=== PATIENT | female | born 1950 | race Caucasian/White ===

== ENCOUNTER 2017-04-08 12:48 | Outpatient (CLI) | payer MEDICARE, BC ==
--- NOTE | 2017-04-09 10:03 | Mammography Report ---
DIGITAL UNILATERAL LEFT SCREENING MAMMOGRAM: 04/08/2017 COMPARISON STUDY: Mammogram 12/25/2015. INDICATION: Screening mammogram. TECHNIQUE: Routine CC and MLO projections were obtained of the left breast. FINDINGS: Parenchymal tissue within left breast is extremely dense, which lowers the sensitivity of mammography; however, there are no dominant masses, suspicious microcalcifications, or secondary sign s of malignancy. In comparison to the previous studies, there are no significant changes. IMPRESSION: No mammographic evidence of malignancy. PLAN: Screening mammography is recommended annually. BIRADS category 1 - negative. STANDARD QUALIFYING STATEMENTS 1. This examination was reviewed with the aid of Computed-Aided Detection (CAD). 2. A negative or benign imaging report should not delay biopsy if clinically suspicious findings are present. Consider surgical consultation if warranted. More than 5% of cancers are not identified by i maging. 3. Dense breasts may obscure an underlying neoplasm. JOB #: [id number] EXT JOB #:[id number]
== END 2017-04-08 12:49 | disposition home or self-care (01) ==
LOC: DI 12:48
PROVIDERS: ATTEND Physician Assistant Medical
DX: Z12.31 Encounter for screening mammogram for malignant neoplasm of breast (principal)
CPT/HCPCS: 77067

== ENCOUNTER 2018-06-30 08:13 | Outpatient (CLI) | payer MEDICARE, OTHER ==
--- NOTE | 2018-06-30 11:09 | DEXA Report ---
Reason: OSTEOPENIA,POSTMENOPAUSAL Procedure Date: 06/30/2018 Accession Number: [id number] / [id number] Procedure: DEX - Dexa Spine and/or Hip CPT Code: FULL RESULT: EXAM: Dexa Spine and/or Hip DATE: 06/30/2018 9:08 AM CLINICAL HISTORY: OSTEOPENIA,POSTMENOPAUSAL TECHNIQUE: Dual energy x-ray absorptiometry (DXA) was performed on a [employer] System. Regions measured are the AP Spine, femoral neck, and if needed forearm. COMPARISON: 01/10/2016 In accordance with the International Society for Clinical Densitometry (ISCD) guidelines, data from previous exams may be reanalyzed using current recommendations and techniques. This is done to allow a more accurate basis for comparison with the current study. FINDINGS: The data for the lumbar spine is as follows: BMD (g/cm/cm) T-SCORE Z-SCORE REGION L1 1.158 0.2 2.0 L2 1.327 1.1 2.9 L3 1.496 2.5 4.3 L4 1.331 1.1 2.9 TOTAL 1.339 1.3 3.1 NOTE: All evaluable vertebrae are used for classification. Values may be elevated due to degenerative change in the spine. There is been a 6.1% increase in bone mineral density since 01/10/2016. The data for the hip is as follows: BMD (g/cm/cm) T-SCORE Z-SCORE REGION Neck 0.855 -1.3 0.4 TOTAL 0.862 -1.2 0.4 NOTE: The femoral neck or total proximal femur, whichever is lowest, is used for classification. There has been a 2.6% decrease in bone mineral density since 01/10/2016. IMPRESSION: THE WHO CLASSIFICATION BASED ON THE INTERNATIONAL REFERENCE STANDARD IS OSTEOPENIA. THE FRACTURE RISK IS INCREASED. RECOMMENDATION: Patients with diagnosis of osteoporosis or osteopenia should have regular bone mineral density assessment. For those eligible for Medicare, routine testing is allowed once every 2 years. Testing frequency can be increased for patients who have rapidly progressing disease or for those who are receiving medical therapy to restore bone mass. COMMENT: World Health Organization (WHO) definitions for osteoporosis and osteopenia: NORMAL BMD: T-score at -1.0 or higher, fracture risk is low OSTEOPENIA BMD: T-score between -1.0 and -2.5, fracture risk is increased. OSTEOPOROSIS BMD: T-score at -2.5 or lower, fracture risk is high. National Osteoporosis Foundation recommends: 1. Obtain adequate dietary calcium (at least 1200 mg per day) and vitamin D (400-800 international units per day). 2. Participate, as appropriate, in regular weightbearing and muscle-strengthening exercise. 3. Avoid tobacco use and reduce alcohol and caffeine intake. 4. For more detailed information see the website at www.NOF.org.
== END 2018-06-30 08:14 | disposition home or self-care (01) ==
LOC: DI 08:13
PROVIDERS: ATTEND Physician Assistant Medical
DX: M85.89 Other specified disorders of bone density and structure, multiple sites (principal); Z78.0 Asymptomatic menopausal state
CPT/HCPCS: 77080

== ENCOUNTER 2019-06-02 10:30 | Outpatient (CLI) | payer MEDICARE, OTHER ==
[2019-06-02] MEDS ORDERED: IOVERSOL 320 100 ML VIAL IVP ONE ×2 (10:35→12:01)
--- NOTE | 2019-06-06 10:54 | CT Report ---
Reason: MASS OF CHEST WALL Procedure Date: 06/02/2019 Accession Number: [id number] / [id number] Procedure: CT - CHEST W CPT Code: Final Report FULL RESULT: EXAM: CT CHEST EXAM DATE: 06/02/2019 11:15 AM. CLINICAL HISTORY: MASS OF CHEST WALL. COMPARISONS: None. TECHNIQUE: Routine helical CT imaging was performed through the chest. IV contrast:80 mL Optiray 320. Reconstructions: Coronal and sagittal. In accordance with CT protocol optimization, one or more of the following dose reduction techniques were utilized for this exam: automated exposure control, adjustment of mA and/or KV based on patient size, or use of iterative reconstructive technique. FINDINGS: Chest Wall: In the right axillary region and in contiguity with the right pectoralis major musculature is a 5.5 x 3.7 x 5.7 cm mass, see sagittal image 156, coronal image 24 and axial image 22 (series 3). The patient is status post right mastectomy with evidence of prior lymph node dissection, findings are concerning for recurrent malignancy. There are a few prominent ipsilateral lymph nodes, supraclavicular nodes are seen coronal on image 31, less than 1 cm in short axis. Similar subcentimeter lymph nodes are seen coronally in the upper axilla on image 38 and in the lower axilla on image 36. Lungs/Pleura: No nodules, bronchial thickening, consolidation, or edema. Pulmonary vasculature is normal. No pericardial or pleural effusion. No pneumothorax. Mediastinum: No internal mammary lymphadenopathy is appreciated. No adenopathy or masses. The heart and great vessels are normal. Bones: Unremarkable. Visualized Abdomen: Unremarkable. Other: None. IMPRESSION: Right axillary mass, suspicious for recurrent malignancy. RADIA
== END 2019-06-02 10:31 | disposition home or self-care (01) ==
LOC: DI 10:30
PROVIDERS: ATTEND Internal Medicine
DX: R22.2 Localized swelling, mass and lump, trunk (principal)
CPT/HCPCS: 71260; Q9967

== ENCOUNTER 2019-06-22 12:54 | Outpatient (CLI) | payer MEDICARE, OTHER ==
[2019-06-22] MEDS ORDERED: LIDOCAINE MPF 1%-EPI 1:200000 10 ML VIAL SUBQ ONE (12:55)
[2019-06-22] MEDS ORDERED: BUFFERED LIDOCAINE 10 ML SYRINGE ONE (13:44)
[2019-06-22] MEDS ORDERED: BUFFERED LIDOCAINE 10 ML SYRINGE IU ONE (15:26)
--- NOTE | 2019-06-22 16:20 | Ultrasound Report ---
Reason: RECURRENT BREAST CA Procedure Date: 06/22/2019 Accession Number: [id number] / [id number] Procedure: US - Biopsy Breast Core CPT Code: Final Report FULL RESULT: EXAM: PROCEDURE: Ultrasound-guided needle biopsy right breast mass. CLINICAL DATA: Targeted mass measuring 6.2 cm with irregular margins in the right axilla. Informed consent was obtained. Using standard aseptic technique, both 1% buffered lidocaine and Sensorcaine were injected into the right axilla for local anesthesia. A small taylor was made in the skin with a #11 blade. A 14-gauge achieve was utilized to obtain three specimens. A specialized biopsy marker clip was placed into the biopsy cavity under ultrasound guidance. Post procedure mammography was deferred. The wound was dressed and ice applied. The patient was observed for approximately 15 minutes, then was discharged from diagnostic imaging Department in good condition following instructions on wound care and obtaining biopsy results. The patient is scheduled to receive the biopsy results from the referring physician. The tissue was sent for histologic analysis. IMPRESSION: Ultrasound-guided biopsy of the right axillary mass. AN ADDENDUM WILL REMAIN TO THIS REPORT WHEN PATHOLOGY IS REVIEWED TO ESTABLISH CONCORDANCE.
== END 2019-06-22 12:55 | disposition home or self-care (01) ==
LOC: DI 12:54
PROVIDERS: ATTEND Internal Medicine Hematology & Oncology
DX: C50.611 Malignant neoplasm of axillary tail of right female breast (principal)
CPT/HCPCS: 19083; 88305; 88341; 88342; 88360; J3490

== ENCOUNTER 2019-06-23 08:01 | Outpatient (CLI) | payer MEDICARE, OTHER ==
[2019-06-23] MEDS ORDERED: IOVERSOL 320 100 ML VIAL IVP ONE ×2 (08:41→11:38)
[2019-06-23] MEDS ORDERED: IOVERSOL 320 50 ML VIAL ONE (08:41)
[2019-06-23] MEDS ORDERED: IOVERSOL 320 50 ML VIAL PO ONE (11:38)
--- NOTE | 2019-06-23 15:43 | Nuclear Medicine Report ---
Reason: RECURRENT BREAST CA Procedure Date: 06/23/2019 Accession Number: [id number] / [id number] Procedure: NM - Bone Whole Body CPT Code: Final Report FULL RESULT: EXAM: BONE SCAN EXAM DATE: 06/23/2019 01:27 PM. CLINICAL HISTORY: RECURRENT BREAST CA. COMPARISON: ABDOMEN/PELVIS W/ 06/23/2019 10:39 AM. TECHNIQUE: Following the intravenous administration of 31.5 mCi of technetium 99m MDP and an appropriate delay, a whole-body scan was performed in anterior and posterior projections. Site-specific spot views of the region of interest were obtained in various projections. FINDINGS: Normal renal radiotracer uptake and bladder activity. Normal soft tissue activity. Overall normal osseous uptake. Moderate S-shaped lumbar scoliosis. Mild to moderate multilevel cervical, thoracic, lumbar spinal uptake likely degenerative. Probable degenerative uptake at the AC joints, right sternoclavicular joint, bases of the thumbs, right knee, proximal tibiofibular joints, bilateral feet. No suspicious focal uptake. IMPRESSION: 1. No convincing scintigraphic evidence of osseous metastasis. 2. Multifocal probable degenerative uptake as noted above. RADIA
--- NOTE | 2019-06-24 09:06 | CT Report ---
Reason: RECURRENT BREAST CA Procedure Date: 06/23/2019 Accession Number: [id number] / [id number] Procedure: CT - Abdomen/Pelvis W CPT Code: Final Report FULL RESULT: EXAM: CT ABDOMEN AND PELVIS EXAM DATE: 06/23/2019 10:44 AM. CLINICAL HISTORY: The patient is a 68-year-old female with recurrent breast carcinoma. COMPARISONS: None. TECHNIQUE: Routine helical CT imaging was performed through the abdomen and pelvis. IV contrast: Optiray 320, 90 mL. Enteric contrast: No. Reconstructions: Coronal and sagittal. In accordance with CT protocol optimization, one or more of the following dose reduction techniques were utilized for this exam: automated exposure control, adjustment of mA and/or KV based on patient size, or use of iterative reconstructive technique. FINDINGS: Lung Bases: Unremarkable. Liver: No masses. Gallbladder/Bile Ducts: Unremarkable. Spleen: Normal. Pancreas: Normal. Adrenal Glands: Minimal adrenal thickening. No discrete masses. Kidneys: No masses or hydronephrosis. Peritoneal Cavity/Bowel: The colon is stool filled. There are no dilated segments of small nor large bowel. There is no bowel wall thickening. A few scattered diverticula present. No evidence for active diverticulitis. There are no pathologically enlarged intra-abdominal or retroperitoneal lymph nodes. There is no free fluid. Few surgical clips are incidental in the lower abdomen. Pelvic Organs: The bladder and visualized pelvic organs are unremarkable. No adenopathy or free fluid in the pelvis. Vasculature: No aneurysms or other significant abnormality. Bones: Moderate lumbar scoliosis is incidental. Multilevel degenerative disk and facet disease present. There are no lytic or blastic destructive lesions. IMPRESSION: 1. No evidence for intra-abdominal or pelvic metastatic disease. 2. Moderate retained stool in the colon at the time of this examination. RADIA
== END 2019-06-23 08:02 | disposition home or self-care (01) ==
LOC: DI 08:01
PROVIDERS: ATTEND Internal Medicine Hematology & Oncology
DX: C50.919 Malignant neoplasm of unspecified site of unspecified female breast (principal)
CPT/HCPCS: 74177; 78306; 93306; Q9967

== ENCOUNTER 2019-07-04 08:31 | Day surgery (SDC) | payer MEDICARE, OTHER ==
[~2019-07-04 08:31] MED LIST: CEFAZOLIN SODIUM IN 0.9 % NACL 2 GM/100 ML BAG IV ONE
[2019-07-04] MEDS ORDERED: LACTATED RINGERS 1,000 ML IV ONE (08:58)
--- NOTE | 2019-07-04 09:22 | ANESTHESIA ---
Pre-Anesthesia VS, & Labs - Diagnosis Recurrent right breast cancer - Procedure Portacath placement Vital Signs: Temp Pulse Resp BP Pulse Ox 36.7 C 65 16 158/62 H 100 07/04/19 08:46 07/04/19 08:46 07/04/19 08:46 07/04/19 08:46 07/04/19 08:46 Height 5 ft 1 in Weight (kg) 56 kg Body Mass Index 23.8 - NPO >8 hours, Other (Water this morning, swallow) - Is Patient ?: Not Applicable - Lab Results Lab results reviewed: No Home Medications and Allergies amLODIPine [Norvasc] 2.5 mg PO DAILY 06/20/19 Allergies/Adverse Reactions: Allergies Allergy/AdvReac Type Severity Reaction Status Date / Time No Known Drug Allergies Allergy Verified 06/27/19 13:36 Anes History & Medical History - Anesthetic History Anesthesia Complications: reports: No previous complications Family history of Anesthesia Complications: Denies Family history of Malignant Hyperthermia: Denies - Medical History Cardiovascular: reports: Hypertension Pulmonary: reports: None, Other (Chronic runny nose) Gastrointestinal: reports: None Urinary: reports: None Neuro: reports: None Musculoskeletal: reports: None Endocrine/Autoimmune: reports: None Blood Disorders: reports: None Skin: reports: None Smoking Status: Never smoker Psychosocial: reports: No issues indicated - Surgical History General: Colonoscopy Eyes Ears Nose Throat (EENT): Tonsil/Adenoidectomy Gynecologic: Tubal ligation, Mastectomy, Other Exam General: Alert Dental: WNL Mouth Opening: Greater than 4 Fingerbreadths Neck Mobility: Normal Mallampati classification: I Thyromental Distance: greater than 6 cm Respiratory: Lungs clear Cardiovascular: Regular rate Mental/Cognitive Status: Alert/Oriented X3 Cognitive Status: Within normal limits Plan Anesthesia Type: MAC Consent for Procedure(s) Verified and Reviewed: Yes Code Status: Attempt Resuscitation ASA classification: 3-Severe systemic disease Is this case an emergency?: No
[2019-07-04] MEDS ORDERED: fentaNYL 100 MCG/2 ML VIAL IVP ONE (10:51)
[2019-07-04] MEDS ORDERED: PROPOFOL 200 MG/20 ML VIAL IVP ONE (10:51)
[2019-07-04] MEDS ORDERED: LIDOCAINE 1%-EPI 1:100000 30 ML MDV SUBQ ONE (11:36)
[2019-07-04] MEDS ORDERED: BUPIVACAINE 0.5% PF 30 ML VIAL SUBQ ONE (11:37)
--- NOTE | 2019-07-04 11:39 | OPERATIVE REPORT ---
Operative Report - General Procedure Date: 07/04/19 Planned Procedure: Left subclavian power port placement Pre-Op Diagnosis: Recurrent right breast cancer Procedure Performed: Left subclavian power port placement Post Op Diagnosis: Recurrent right breast cancer - Procedure Note Primary Surgeon: Bren Anesthesia Provider: LENNY Roland Anesthesia Technique: Local Estimated Blood Loss (mL): 10 Findings: Power port in good position in the superior venacava. Complications: None apparent - Other Other Information/Narrative: After obtaining informed consent, the patient is brought to the operating room and placed in supine position on the operating table. Following successful induction of sedation with monitored anesthesia care and appropriate padding of all bony prominences, the left chest and neck were prepped and draped in the standard surgical fashion. A timeout was held per scope protocol. All elements of the surgical safety checklist were followed before, during, and after the procedure. Following infiltration with local anesthetic to create a field block, the left subclavian vein was accessed in the deltopectoral groove. The J-wire was gently placed into the vein. Fluoroscopy was used to confirm the position of the wire and in the subclavian vein. We anesthetized the existing healed scar in the area around it for placement of the port itself. An incision was created here and carried down through the skin and subcutaneous tissue. A pocket was created with blunt dissection. The port tubing was attached to the tunneling device and passed from the access site of the vein into the pocket. It was trimmed to an appropriate length and the port attached. The port was sewn into place in the pocket. The dilator and introducer were then passed over the J-wire that was in the subclavian vein. The J-wire and dilator were removed leaving only the introducer. The tubing was then passed through the introducer and the introducer cracked and removed per gmat instructor's directions. The port was then checked for function and flushed and jessi easily. Additional local anesthetic was applied to the chest wall. The port pocket was closed with interrupted Vicryl sutures and Monocryl stitches were placed in both skin incision sites. All sponge, needle, and instrument counts were correct at the conclusion of the case. Chest x-ray in the postanesthesia care unit revealed the port in good position in the superior vena cava without evidence of pneumothorax.
[2019-07-04 11:51] VITALS: BP 108/93
--- NOTE | 2019-07-04 12:29 | XRAY Report ---
Reason: Left Port Placement Procedure Date: 07/04/2019 Accession Number: [id number] / [id number] Procedure: XR - Chest for Line Placement CPT Code: Final Report FULL RESULT: EXAM: CHEST RADIOGRAPHY EXAM DATE: 07/04/2019 11:56 AM. CLINICAL HISTORY: Left Port Placement. COMPARISON: XR CHEST PA AND LAT 08/17/2007 1:09 PM. TECHNIQUE: 1 view. FINDINGS: Lungs/Pleura: No focal opacities evident. No pleural effusion. No pneumothorax. Mediastinum: Within exam limitations, the cardiomediastinal contour is normal. Other: Left subclavian Port-A-Cath with tip overlying lower third of SVC. Right axillary surgical clip. IMPRESSION: 1. Left subclavian Port-A-Cath with tip overlying lower third of SVC. 2. No pneumothorax. RADIA
--- NOTE | 2019-07-04 16:29 | XRAY Report ---
Reason: portacath placement Procedure Date: 07/04/2019 Accession Number: [id number] / [id number] Procedure: FL - OR C-Arm Procedure CPT Code: Final Report FULL RESULT: EXAM: FLUOROSCOPIC GUIDANCE EXAM DATE: 07/04/2019 12:30 PM. CLINICAL HISTORY: Portacath placement. COMPARISON: CHEST W/ 06/02/2019 11:11 AM. FINDINGS IMPRESSION: Fluoroscopic guidance provided forport placement.Total fluoroscopy time: 0.1 minute. Number of images: One. RADIA
== END 2019-07-04 08:32 | disposition home or self-care (01) ==
LOC: SDS 08:31
PROVIDERS: ATTEND Surgery
PROC: 02HV33Z Insertion of Infusion Device into Superior Vena Cava, Percutaneous Approach (ICD-10-PCS; principal; 2019-07-04 09:45)
DX: C50.911 Malignant neoplasm of unspecified site of right female breast (principal); I10 Essential (primary) hypertension
CPT/HCPCS: 36561; C1788; J0690; J7120; 71045

== ENCOUNTER 2020-02-02 10:00 | Outpatient (CLI) | payer MEDICARE, OTHER | END 2020-02-02 23:59 | disposition home or self-care (01) | LOC: COV 10:00 | PROVIDERS: ATTEND Family Medicine | DX: Z01.818 Encounter for other preprocedural examination (principal); C50.919 Malignant neoplasm of unspecified site of unspecified female breast; Z20.828 Contact with and (suspected) exposure to other viral communicable diseases ==

== ENCOUNTER 2020-02-06 08:31 | Day surgery (SDC) | payer MEDICARE, OTHER ==
[2020-02-06] MEDS ORDERED: LACTATED RINGERS 1,000 ML IV ONE ×2 (08:34→13:57)
--- NOTE | 2020-02-06 09:38 | ANESTHESIA ---
Pre-Anesthesia VS, & Labs - Diagnosis recurrent right breast cancer - Procedure axillary node dissection Vital Signs: Temp Pulse Resp BP Pulse Ox 36.4 C L 74 15 126/80 97 02/06/20 08:44 02/06/20 08:44 02/06/20 08:44 02/06/20 08:44 02/06/20 08:44 Height 5 ft 1 in Weight (kg) 54 kg Body Mass Index 23.1 - NPO >8 hours - Is Patient ?: Not Applicable - Lab Results Lab results reviewed: Yes Home Medications and Allergies amLODIPine [Norvasc] 2.5 mg PO DAILY 06/20/19 Letrozole 2.5 mg PO DAILY 01/09/20 Allergies/Adverse Reactions: Allergies Allergy/AdvReac Type Severity Reaction Status Date / Time No Known Drug Allergies Allergy Verified 01/09/20 09:01 Anes History & Medical History - Anesthetic History Anesthesia Complications: reports: No previous complications Family history of Anesthesia Complications: Denies Family history of Malignant Hyperthermia: Denies - Medical History Cardiovascular: reports: Hypertension Pulmonary: reports: None Gastrointestinal: reports: None Urinary: reports: None Neuro: reports: None Musculoskeletal: reports: None Endocrine/Autoimmune: reports: None Blood Disorders: reports: None Skin: reports: None Smoking Status: Never smoker - Surgical History General: Colonoscopy Eyes Ears Nose Throat (EENT): Tonsil/Adenoidectomy Gynecologic: Tubal ligation, Mastectomy, Other Exam General: Alert, Oriented x3, Cooperative, No acute distress Dental: WNL Mouth Openin Fingerbreadth Neck Mobility: Normal Mallampati classification: II Respiratory: Lungs clear, Normal breath sounds, No respiratory distress, No accessory muscle use Cardiovascular: Regular rate, Normal S1, Normal S2, No murmurs Plan Anesthesia Type: General Consent for Procedure(s) Verified and Reviewed: Yes Code Status: Attempt Resuscitation ASA classification: 3-Severe systemic disease Is this case an emergency?: No
[2020-02-06] MEDS ORDERED: ATROPINE ABBOJECT 1 MG/10 ML SYRINGE IVP PRN (09:54)
[2020-02-06] MEDS ORDERED: fentaNYL 100 MCG/2 ML VIAL IVP PRN (09:54)
[2020-02-06] MEDS ORDERED: ONDANSETRON 4 MG/2 ML VIAL IVP PRN (09:54)
[2020-02-06] MEDS ORDERED: NALOXONE 0.4 MG/ML VIAL IVP PRN (09:54)
[2020-02-06] MEDS ORDERED: METOCLOPRAMIDE 10 MG/2 ML VIAL IVP PRN (09:54)
[2020-02-06] MEDS ORDERED: HYDROmorphone 0.5 MG/0.5 ML SYRINGE IVP PRN (09:54)
[2020-02-06] MEDS ORDERED: MORPHINE 2 MG/ML CARPUJECT IVP PRN (09:54)
[2020-02-06] MEDS ORDERED: ePHEDrine 50 MG/ML VIAL IVP PRN (09:54)
[2020-02-06] MEDS ORDERED: LACTATED RINGERS 1,000 ML IV SCH (10:00)
[2020-02-06] MEDS ORDERED: ONDANSETRON 4 MG/2 ML VIAL IVP ONE (12:35)
[2020-02-06] MEDS ORDERED: PROPOFOL 200 MG/20 ML VIAL IVP ONE (12:35)
[2020-02-06] MEDS ORDERED: DEXAMETHASONE 4 MG/ML VIAL IVP ONE (12:35)
[2020-02-06] MEDS ORDERED: CEFAZOLIN SODIUM IN 0.9 % NACL 2 GM/100 ML BAG IV ONE (12:35)
[2020-02-06] MEDS ORDERED: fentaNYL 100 MCG/2 ML VIAL IVP ONE (12:35)
[2020-02-06] MEDS ORDERED: LIDOCAINE-MPF 2% 5 ML VIAL IM ONE (12:35)
[2020-02-06] MEDS ORDERED: BUPIVACAINE 0.5% PF 30 ML VIAL INFIL ONE ×3 (13:01)
[2020-02-06] MEDS ORDERED: LIDOCAINE 1%-EPI 1:100000 20 ML MDV SUBQ ONE ×3 (13:03)
--- NOTE | 2020-02-06 14:41 | ANESTHESIA POST OP EVALUATION ---
Anesthesia Post Eval - Post Anesthesia Eval Vitals: Last Vital Signs Temp 36.6 C 02/06/20 14:20 Pulse 79 02/06/20 14:30 Resp 20 02/06/20 14:30 BP 131/65 H 02/06/20 14:30 Pulse Ox 99 02/06/20 14:30 CV Function Including HR & BP: positive: Stable Pain Control: positive: Satisfactory Nausea & Vomiting: positive: Negative Mental Status: positive: Baseline Respiratory Status: Airway Patent Hydration Status: Satisfactory Anesthesia Complications: positive: None
[2020-02-06 14:50] VITALS: BP 138/64
--- NOTE | 2020-02-06 17:24 | OPERATIVE REPORT ---
Operative Report - General Planned Procedure: Excision of right axillary mass and axillary dissection Pre-Op Diagnosis: Recurrent right breast cancer Procedure Performed: Excision of right axillary mass and axillary dissection Post Op Diagnosis: Recurrent right breast cancer - Procedure Note Primary Surgeon: Bren Anesthesia Provider: LENNY Moore Anesthesia Technique: General LMA, Local Pathology: 1. Right breast mass 2. Right axillary fat pad Estimated Blood Loss (mL): 20 Drain/Tube Type: Latrell Pablo drain Indications: Recurrent right breast cancer with with a large axillary mass status post neoadjuvant chemotherapy. Findings: Large right axillary mass fixed to pectoralis major and minor muscles as well as the axillary vein. Complications: None apparent - Other Other Information/Narrative: After obtaining informed consent, the patient is brought to the operating room and placed in the supine position on the operating table. Following successful induction of general endotracheal anesthesia, appropriate padding of all bony prominences, and placement appropriate monitors, the right axilla was prepped and draped in the standard surgical fashion. A timeout was held per scope protocol. All elements of the surgical safety checklist were followed before, during, and after the procedure. We began the procedure by infiltrating a mixture of local anesthetics in the healed incision in the right axilla. The incision was extended slightly anteriorly and posteriorly to provide greater access. This was carried through the skin and a minimum amount of subcutaneous tissue before the mass was encountered.We continued our dissection superiorly in an effort to free the dermis from the surface of the mass.It is notable that the mass was fixed to the skin, the latissimus muscle posteriorly, the pectoralis major and minor anteriorly and medially, and the axillary vein superiorly. Great care was taken to extricate as much tumor as possible from the surrounding structures. Dissection was first carried out along the dermis sharply to provide greater visualization as mobility was very limited. I then worked inferiorly using sharp techniques to lift the mass from the remainder of the axillary structures. In the inferior portion of the axilla, the tissue posterior to the mass was soft and a plan was developed anteriorly and superiorly until it was clear there was not plane of dissection between the mass and the pectoralis major. Cautery was use to liberate the mass from the muscle. This revealed additional woody tissue in the region between the pectoralis major and minor. I continued the dissection medially as far as possible and then posteriorly to liberate the mass from the pectoralis minor. At this point I was able to identify the axillary vein medially and it was apparent the tumor was plastered to it. I worked medially to laterally due to the limits of mobility of the mass. The mass was peeled and sharply excised from the axillary vein leaving the vein patent and intact. The mass was rotated laterally and finally freed from the axillary tissue. It was oriented and passed from the table. The wound was checked for hemostasis and irrigated with warm water. A 19 F drain was placed in the defect and brought out laterally in the axilla. This was sewn into place. The wound was then closed in layers with vicryl and monocryl sutures. Dermabond was applied to the skin. All sponge, needle and instrument counts were correct at the conclusion of the case. The patient was allowed to awaken from anesthesia and taken to the post anesthesia care unit in good condition.
== END 2020-02-06 08:32 | disposition home or self-care (01) ==
LOC: SDS 08:31
PROVIDERS: ATTEND Surgery
PROC: 07B50ZZ Excision of Right Axillary Lymphatic, Open Approach (ICD-10-PCS; principal; 2020-02-06 09:45)
DX: C50.911 Malignant neoplasm of unspecified site of right female breast (principal); C77.3 Secondary and unspecified malignant neoplasm of axilla and upper limb lymph nodes; I10 Essential (primary) hypertension
CPT/HCPCS: 38525; J0690; J7120

== ENCOUNTER 2020-06-28 12:48 | Outpatient (CLI) | payer MEDICARE, OTHER ==
--- NOTE | 2020-06-28 16:48 | DEXA Report ---
PROCEDURE: Dexa Spine and/or Hip INDICATIONS: POST MENOPAUSAL TECHNIQUE: Dual energy x-ray absorptiometry (DXA) was performed on a [employer] System. Regions measur ed are the AP Spine, femoral neck, and if needed forearm. COMPARISON: 06/30/2018. FINDINGS: Lumbar Spine: Bone Mineral Density 1.344 g/cm/cm,T score 1.4, normal density Left Femoral Neck: Bone Mineral Density 0.808 g/cm/cm, T score -1.6, osteopenia (T score greater or equal to -1.0: NORMAL) (T score from -1.1 to -2.4: OSTEOPENIA) (T score less than or equal to -2.5 to: OSTEOPOROSIS) Impression: OSTEOPENIA. Patient is at increased risk for fracture Patients with diagnosis of osteoporosis or osteopenia should have regular bone mineral density assess ment. For those eligible for Medicare, routine testing is allowed once every 2 years. Testing frequ ency can be increased for patients who have rapidly progressing disease or for those who are receivin g medical therapy to restore bone mass. Reviewed by: Darwin Beltran MD on 06/28/2020 3:47 PM [place] Approved by: Darwin Beltran MD on 06/28/2020 3:47 PM [place] Station ID: [id number]
== END 2020-06-28 12:49 | disposition home or self-care (01) ==
LOC: DI 12:48
PROVIDERS: ATTEND Internal Medicine Hematology & Oncology
DX: M85.88 Other specified disorders of bone density and structure, other site (principal)

== ENCOUNTER 2021-02-08 13:00 | Outpatient (CLI) | payer MEDICARE, OTHER ==
--- NOTE | 2021-02-11 15:41 | Mammography Report ---
UNILATERAL LEFT DIGITAL SCREENING MAMMOGRAM 3D/2D: 02/08/2021 CLINICAL: Routine screening. Personal history of right breast cancer. Comparison is made to exams dated: 06/22/2019 ultrasound biopsy, 07/20/2018 mammogram, 04/08/2017 mammog dee, 12/25/2015 mammogram, 01/20/2014 breast MRI, and 12/08/2013 ultrasound - [facility]. The tissue of left breast is heterogeneously dense. This may lower the sensitivity of mammography . There are calcifications in the left breast. No significant masses, calcifications, or other findings are seen in the breast. There has been no significant interval change. IMPRESSION: BENIGN There is no mammographic evidence of malignancy. A 1 year screening mammogram is recommended. This exam was interpreted at Station ID: [id number]. NOTE: For mammograms, a report in lay terms will be sent to the patient. Approximately 15% of breast malignancies will not be visualized mammographically. In the management of a palpable breast mass, a negative mammogram must not discourage biopsy of a clinically suspicious lesion. Electronically Signed By: Darwin Beltran M.D. aty/:02/08/2021 13:59:53 ACR BI-RADS Category 2: Benign Finding(s) 3342F PARENCHYMAL PATTERN: (D) - The breast(s) demonstrate(s) heterogeneously dense fibroglandular partony calderon. BI-RADS CATEGORY: (2) - 2 RECOMMENDATION: (ANNUAL) - Recommend routine annual screening mammography. [id number] 1 year screening LATERALITY: (B)
== END 2021-02-08 13:01 | disposition home or self-care (01) ==
LOC: DI 13:00
PROVIDERS: ATTEND Internal Medicine Hematology & Oncology
DX: Z12.31 Encounter for screening mammogram for malignant neoplasm of breast (principal); Z85.3 Personal history of malignant neoplasm of breast

== ENCOUNTER 2022-03-28 14:52 | Outpatient (CLI) | payer MEDICARE, OTHER ==
--- NOTE | 2022-03-28 15:33 | XRAY Report ---
PROCEDURE: Ribs w/PA Chest RT INDICATIONS: ITS.REASON: RIB PAIN TECHNIQUE: 2 views of the right ribs were acquired, along with a single view chest. COMPARISON: None. FINDINGS: Surgical changes and devices: None. Bones and chest wall: Possible nondisplaced right eighth rib fracture. No suspicious bony lesions. Overlying soft tissues appear unremarkable. Lungs and pleura: There is a density in the right apex. No pleural effusions or pneumothorax. Mediastinum: Mediastinal contours appear normal. Heart size is normal. IMPRESSION: 1. Possible nondisplaced right eighth rib fracture. 2. Density in the right apex. Cannot rule out a right apical mass. Recommend chest CT for follow-up e valuation. Reviewed by: Ken Smith MD on 03/28/2022 3:32 PM PDT Approved by: Ken Smith MD on 03/28/2022 3:32 PM PDT Station ID: [id number]
== END 2022-03-28 14:53 | disposition home or self-care (01) ==
LOC: DI 14:52
PROVIDERS: ATTEND Physician Assistant
DX: R07.81 Pleurodynia (principal); R91.8 Other nonspecific abnormal finding of lung field
CPT/HCPCS: 36415; 80048

== ENCOUNTER 2022-03-28 17:16 | Outpatient (CLI) | payer MEDICARE, OTHER ==
[2022-03-28 20:49] LABS: CALCIUM 9.3 mg/dL (8.5-10.3); CREATININE 0.7 mg/dL (0.4-1.0); POTASSIUM 3.9 mmol/L (3.5-5.0)
== END 2022-03-28 17:17 | disposition home or self-care (01) ==
LOC: LAB.N 17:16
PROVIDERS: ATTEND Internal Medicine
DX: R91.8 Other nonspecific abnormal finding of lung field (principal)
CPT/HCPCS: 36415; 80048

== ENCOUNTER 2022-04-04 09:00 | Outpatient (CLI) | payer MEDICARE, OTHER ==
--- NOTE | 2022-04-04 12:08 | CT Report ---
PROCEDURE: CT chest without contrast INDICATIONS: 71-year-old female with rib fracture, abnormal chest x-ray, history of breast cancer TECHNIQUE: Noncontrast 1mm axial images were acquired from the pulmonary apices to the posterior costophrenic an gles. Axial 5 mm soft tissue kernel reconstructions were performed as well as 8 mm axial MIP and cor onal and sagittal 5 mm reformations. For radiation dose reduction, the following was used: automate d exposure control, adjustment of mA and/or kV according to patient size. COMPARISON: Chest x-ray 03/28/2022 FINDINGS: Image quality: Excellent. Lungs and pleura: No acute air space opacities. Fibrotic reticulation noted in the lung apex consist ent with prior XRT Mediastinum: Heart size is normal. No pericardial effusion. No mediastinal adenopathy by size crit eria. Thoracic aorta and central pulmonary arteries are normal in size. Esophagus is normal in manjit debi. No hiatal hernia. Bones and chest wall: Nondisplaced acute appearing rib fractures noted through the right anterior fir st, second and third ribs. Old healed rib fracture noted in the third anterior rib distally. Surgical clips noted in the right axilla. Fatty asymmetric right breast probably reflects reconstruction. Abdomen: Visualized upper abdominal solid organs and bowel loops appear normal in the absence of con trast. Left hepatic cyst IMPRESSION: 1. Right apical density on prior chest x-ray corresponds with fibrotic changes, probable sequelae of XRT 2. Nondisplaced anterior right first, second and third subacute rib fractures. No pneumothorax. Reviewed by: Blade Cunnnigham MD on 04/04/2022 11:06 AM BOY Approved by: Blade Cunningham MD on 04/04/2022 11:06 AM AKDT Station ID: [id number]
== END 2022-04-04 09:01 | disposition home or self-care (01) ==
LOC: DI 09:00
PROVIDERS: ATTEND Physician Assistant
DX: R91.8 Other nonspecific abnormal finding of lung field (principal); S22.41XA Multiple fractures of ribs, right side, initial encounter for closed fracture

== ENCOUNTER 2022-07-01 07:57 | Outpatient (CLI) | payer MEDICARE, OTHER ==
[2022-07-01] MEDS: LACTATED RINGERS 1,000 ML IV ONE ×2 (08:17→10:47)
[2022-07-01] MEDS ORDERED: LIDOCAINE-MPF 1% 5 ML VIAL ONE ×3 (08:35→10:18)
[2022-07-01] MEDS ORDERED: iohexoL-300 100 ML VIAL ONE (10:05)
[2022-07-01 12:45] VITALS: BP 128/71
--- NOTE | 2022-07-01 15:36 | CT Report ---
PROCEDURE: Bone Biopsy Ndl Deep Sedation analgesia, please see nursing record INDICATIONS: RECURRENT RT BREAST CA TECHNIQUE: The indications, alternatives, benefits, risks, and possible complications of the procedure were comm unicated to the patient. Informed written consent from the patient was obtained and placed in the art. Continuous EKG and hemodynamic monitoring was started by trained personnel. For radiation dose reduction, the following was used: automated exposure control, adjustment of mA and/or kV according to patient size. The patient was brought to the CT suite and chief of service spiral CT imaging was performed with localization g rid. The appropriate site for percutaneous access to the biopsy target was marked, was prepped and d raped sterilely, and was infused with local anaesthesia. Under CT guidance, a core biopsy trocar and needle set was advanced to the biopsy target, and specimen(s) were obtained. The trocar and needle were then removed, and the patient was sent for post-procedure monitoring. COMPARISON: Pelvic MRI 06/21/2022 FINDINGS: Biopsy site: Left iliac bone Needle: Bone biopsy kit Number of passes: 2 Medications: 1% lidocaine for local anaesthesia. IV Fentanyl and Versed for conscious sedation Due to the sclerotic nature of the bone lesion, unable to obtain a sufficient core. IMPRESSION: Unsuccessful CT guided bone biopsy. This was converted to a soft tissue biopsy of the adj acent left iliacus lesion seen on recent MRI. Reviewed by: Inderjit Moore MD on 07/01/2022 3:34 PM PST Approved by: Inderjit Moore MD on 07/01/2022 3:34 PM PST Station ID: [id number]
[2022-07-01] MEDS: iohexoL-300 100 ML VIAL IVP ONE (15:38)
--- NOTE | 2022-07-01 15:39 | CT Report ---
PROCEDURE: Muscle Biopsy Perc INDICATIONS: Pelvic muscle mass Biopsy TECHNIQUE: The indications, alternatives, benefits, risks, and possible complications of the procedur e were communicated to the patient. Informed written consent from the patient was obtained and place d in the chart. Continuous EKG and hemodynamic monitoring was started by trained personnel. For rad iation dose reduction, the following was used: automated exposure control, adjustment of mA and/or k V according to patient size. The patient was brought to the CT suite and grinder gear spiral CT imaging was performed with localization g rid. The appropriate site for percutaneous access to the biopsy target was marked, was prepped and d raped sterilely, and was infused with local anaesthesia. Under CT guidance, a core biopsy trocar and needle set was advanced to the biopsy target, and specimen(s) were obtained. The trocar and needle were then removed, and the patient was sent for post-procedure monitoring. COMPARISON: Pelvic MRI 06/21/2022 FINDINGS: Biopsy site: left iliacus muscle Needle: 18-gauge Bard edition biopsy set Number of passes: 4 Medications: Lidocaine for local anesthesia. IV fentanyl and Versed for conscious sedation, please se e nursing record. IMPRESSION: Successful CT-guided biopsy of the left iliacus muscle lesion. Pathology results pending. Reviewed by: Inderjit Moore MD on 07/01/2022 3:38 PM PST Approved by: Inderjit Moore MD on 07/01/2022 3:38 PM PST Station ID: [id number]
[2022-07-01] MEDS: LIDOCAINE-MPF 1% 5 ML VIAL SUBQ ONE (15:41)
== END 2022-07-01 07:58 | disposition home or self-care (01) ==
LOC: DI 07:57
PROVIDERS: ATTEND Internal Medicine Hematology & Oncology
DX: C50.911 Malignant neoplasm of unspecified site of right female breast (principal); C76.3 Malignant neoplasm of pelvis
CPT/HCPCS: 20206; 20225; 77012; J7120; Q9967

== ENCOUNTER 2023-08-26 08:03 | Outpatient (CLI) | payer MEDICARE, OTHER ==
[2023-08-26 13:01] LABS: THYROID STIMULATING HORMONE 2.29 uIU/mL (0.34-5.60)
[2023-08-26 13:09] LABS: CHOL/HDL RATIO 2.9 (<4.4); CHOLESTEROL 181 mg/dL; HDL CHOLESTEROL 63 mg/dL; LDL CHOLESTEROL,CALCULATED 91 mg/dL; LDL/HDL RATIO 1.4 (<4.4); TRIGLYCERIDES 137 mg/dL (48-352); VLDL CHOLESTEROL 27 mg/dL
== END 2023-08-26 08:04 | disposition home or self-care (01) ==
LOC: LAB.N 08:03
PROVIDERS: ATTEND Internal Medicine
DX: C50.919 Malignant neoplasm of unspecified site of unspecified female breast (principal); I10 Essential (primary) hypertension; Z13.6 Encounter for screening for cardiovascular disorders; Z79.899 Other long term (current) drug therapy
CPT/HCPCS: 36415; 80061; 83721; 84443

== ENCOUNTER 2023-10-14 09:30 | Outpatient (CLI) | payer MEDICARE, OTHER | END 2023-10-14 23:59 | disposition home or self-care (01) | LOC: PC 09:30 | PROVIDERS: ATTEND Nurse Practitioner Gerontology | DX: Z51.5 Encounter for palliative care (principal); K59.00 Constipation, unspecified; Z71.89 Other specified counseling; C50.919 Malignant neoplasm of unspecified site of unspecified female breast; C79.51 Secondary malignant neoplasm of bone; Z66 Do not resuscitate | CPT/HCPCS: 99349 ==

== ENCOUNTER 2024-01-15 08:00 | Outpatient (CLI) | payer MEDICARE, OTHER | END 2024-01-15 23:59 | disposition home or self-care (01) | LOC: PC 08:00 | PROVIDERS: ATTEND Nurse Practitioner Gerontology | DX: Z51.5 Encounter for palliative care (principal); C79.51 Secondary malignant neoplasm of bone; C50.911 Malignant neoplasm of unspecified site of right female breast; L40.50 Arthropathic psoriasis, unspecified; I10 Essential (primary) hypertension; Z71.89 Other specified counseling; K13.0 Diseases of lips; Z90.11 Acquired absence of right breast and nipple; Z79.899 Other long term (current) drug therapy; Z79.818 Long term (current) use of other agents affecting estrogen receptors and estrogen levels; Z66 Do not resuscitate | CPT/HCPCS: 99350 ==